=== PATIENT | male | born 1995 | race Caucasian/White ===

== ENCOUNTER 2017-12-12 21:51 | Emergency (ER) | payer BC ==
--- NOTE | 2017-12-12 22:24 | EDM.PDOC ---
ED HPI GENERAL MEDICAL PROBLEM - General Chief Complaint: Lower Extremity Injury/Pain Stated Complaint: PT HURT LT LEG Time Seen by Provider: 12/12/17 22:24 Source of Information: Reports: Patient - History of Present Illness INITIAL COMMENTS - FREE TEXT/NARRATIVE: HISTORY AND PHYSICAL: History of present illness: [ Patient presents with left lower extremity pain midshaft tib-fib as well as some ankle pain unable to bare weight rates 5 out of 10 nonradiating Is playing hockey tonight he came around the neck and struck component almost headfirst the exact mechanism of the lower extremity injury is unclear although suspect he twisted his ankle no fever nausea vomiting chills sweats no head injury or loss of consciousness No chest pain shortness breath headache dizziness or palpitation no bowel or urine symptoms ] Review of systems: As per history of present illness and below otherwise all systems reviewed and negative. Past medical history: As per history of present illness and as reviewed below otherwise noncontributory. Surgical history: As per history of present illness and as reviewed below otherwise noncontributory. Social history: No reported history of drug or alcohol abuse. Family history: As per history of present illness and as reviewed below otherwise noncontributory. Physical exam: HEENT: Atraumatic, normocephalic, pupils reactive, negative for conjunctival pallor or scleral icterus, mucous membranes moist, throat clear, neck supple, nontender, trachea midline. Lungs: Clear to auscultation, breath sounds equal bilaterally, chest nontender. Heart: S1S2, regular, negative for clicks, rubs, or JVD. Abdomen: Soft, nondistended, nontender. Negative for masses or hepatosplenomegaly. Negative for costovertebral tenderness. Pelvis: Stable nontender. Genitourinary: Deferred. Rectal: Deferred. Extremities: Atraumatic, negative for cords or calf pain. Neurovascular unremarkable. Neuro: Awake, alert, oriented. Cranial nerves II through XII unremarkable. Cerebellum unremarkable. Motor and sensory unremarkable throughout. Exam nonfocal. Diagnostics: [Tib-fib on the left Left ankle 3 views ] Therapeutics: [Rest ice ibuprofen Air splint Crutches nonweightbearing Follow-up with primary care in 2 weeks sooner as needed ] Impression: [Left ankle pain /sprain Definitive disposition and diagnosis as appropriate pending reevaluation and review of above. left lower leg Pain Score (Numeric/FACES): 10 - Related Data Allergies Allergy/AdvReac Type Severity Reaction Status Date / Time No Known Allergies Allergy Verified 12/12/17 22:17 Home Meds: Home Meds . [No Known Home Meds] 12/12/17 [History] Past Medical History HEENT History: Reports: None Cardiovascular History: Reports: None Respiratory History: Reports: None Gastrointestinal History: Reports: None Genitourinary History: Reports: None Musculoskeletal History: Reports: None Neurological History: Reports: None Psychiatric History: Reports: None Endocrine/Metabolic History: Reports: None Hematologic History: Reports: None Immunologic History: Reports: None Oncologic (Cancer) History: Reports: None Dermatologic History: Reports: None - Infectious Disease History Infectious Disease History: Reports: None - Past Surgical History HEENT Surgical History: Reports: Tonsillectomy Social & Family History - Family History Family Medical History: Noncontributory - Tobacco Use Smoking Status *Q: Never Smoker - Caffeine Use Caffeine Use: Reports: None - Recreational Drug Use Recreational Drug Use: No Review of Systems - Review of Systems Review Of Systems: ROS reveals no pertinent complaints other than HPI. ED EXAM, GENERAL - Physical Exam Exam: See Below Course - Vital Signs Last Recorded V/S: Last Vital Signs Temp 98.8 F 12/12/17 22:17 Pulse 92 12/12/17 22:17 Resp 18 12/12/17 22:17 BP 120/69 12/12/17 22:17 Pulse Ox 98 12/12/17 22:17 - Orders/Labs/Meds Orders: Active Orders 24 hr Category Date Time Status Ankle Min 3V Lt [CR] Stat Exams 12/12/17 22:24 Taken Tibia Fibula Lt [CR] Stat Exams 12/12/17 22:24 Taken Meds: Medications Discontinued Medications Generic Name Dose Route Start Last Admin Trade Name Freq PRN Reason Stop Dose Admin Ketorolac Tromethamine 60 mg 12/12/17 23:32 Toradol IM 12/12/17 23:33 ONETIME ONE Departure - Departure Time of Disposition: 23:55 Disposition: Home, Self-Care 01 Condition: Good Clinical Impression: High ankle sprain of left lower extremity - Discharge Information Referrals: PCP,None [Primary Care Provider] - Forms: ED Department Discharge Additional Instructions: Rest Ice 20 minute intervals 3 times daily 7-10 days Ibuprofen 400 mg 3 times daily 7-10 days Air splint Crutches Nonweightbearing Follow-up with primary care or orthopedic clinic in 2 weeks [facility] Professional [facility] [address] [place] [address], [address] [place] [address] [facility] [address], [place] [address] The following information is given to patients seen in the emergency department who are being discharged to home. This information is to outline your options for follow-up care. We provide all patients seen in our emergency department with a follow-up referral. The need for follow-up, as well as the timing and circumstances, are variable depending upon the specifics of your emergency department visit. If you don't have a primary care physician on staff, we will provide you with a referral. We always advise you to contact your personal physician following an emergency department visit to inform them of the circumstance of the visit and for follow-up with them and/or the need for any referrals to a consulting specialist. The emergency department will also refer you to a specialist when appropriate. This referral assures that you have the opportunity for follow-up care with a specialist. All of these measure are taken in an effort to provide you with optimal care, which includes your follow-up. Under all circumstances we always encourage you to contact your private physician who remains a resource for coordinating your care. When calling for follow-up care, please make the office aware that this follow-up is from your recent emergency room visit. If for any reason you are refused follow-up, please contact the [facility] emergency department at and asked to speak to the emergency department charge nurse. - My Orders Last 24 Hours: My Active Orders 12/12/17 22:24 Ankle Min 3V Lt [CR] Stat Tibia Fibula Lt [CR] Stat - Assessment/Plan Last 24 Hours: My Active Orders 12/12/17 22:24 Ankle Min 3V Lt [CR] Stat Tibia Fibula Lt [CR] Stat
[2017-12-12] MEDS ORDERED: Ketorolac 60 MG/2 ML SDV IM ONE (23:32)
--- NOTE | 2017-12-15 13:44 | CR ---
EXAM DATE: 12/12/17 PATIENT'S AGE: 22 Patient: MANJEET MOREL Facility: [place], [place] Site . Site : 1996 Study: XRay Extremity Left ankle [id number]/2/2018 11:22:24 PM Ordering Physician: Ganga Meredith Final Report: INDICATION: sports injury TECHNIQUE: Left ankle 3 views. COMPARISON: None. FINDINGS: Bones: Alignment is normal. No fractures or bone lesions. Joint spaces: Unremarkable. Soft tissues: Unremarkable. IMPRESSION: Unremarkable left ankle. Dictated by: Hung Archuleta MD @ 12/12/2017 23:52:05 (Electronic Signature) Report Signed by Proxy. CHIOMA
--- NOTE | 2017-12-15 13:45 | CR ---
EXAM DATE: 12/12/17 PATIENT'S AGE: 22 Patient: MANJEET MOREL Facility: [place], [place] Site . Site : 1996 Study: XRay Extremity Left tib/fib [id number]/[id number] 11:22:49 PM Ordering Physician: Ganga Meredith Final Report: INDICATION: Trauma TECHNIQUE: Two views left tibia and fibula COMPARISON: None FINDINGS: Bones: Alignment is normal. No fractures or bone lesions. Joint spaces: Unremarkable. Soft tissues: Unremarkable. IMPRESSION: Negative. Dictated by Hung Archuleta MD @ 12/12/2017 11:49:38 PM Dictated by: Hung Archuleta MD @ 12/12/2017 23:49:46 (Electronic Signature) Report Signed by Proxy. CHIOMA
== END 2017-12-13 00:01 | disposition home or self-care (01) ==
LOC: MW.ED 21:51
DX: S93.402A Sprain of unspecified ligament of left ankle, initial encounter (principal); X50.1XXA Overexertion from prolonged static or awkward postures, initial encounter
CPT/HCPCS: 73590; 73610; 96372; 99283; J1885